=== PATIENT | female | born 1970 | race African-American/Black ===

== ENCOUNTER 2017-03-22 19:13 | Emergency (ER) | payer BC ==
[~2017-03-22] VITALS: Ht 165.1 cm; Wt 89.8 kg
[~2017-03-22 19:13] MED LIST: CIPRO500 MG PO
[2017-03-22] MEDS ORDERED: NORVASC5 MG PO (19:27)
== END 2017-03-22 19:53 | disposition home or self-care (01) ==
LOC: ER 19:13
DX: B08.5 Enteroviral vesicular pharyngitis (principal); I10 Essential (primary) hypertension

== ENCOUNTER 2017-06-23 19:47 | Emergency (ER) | payer BC ==
[~2017-06-23] VITALS: Ht 165.1 cm; Wt 89.8 kg
[~2017-06-23 19:47] MED LIST changes: +NORVASC5 MG PO
[2017-06-23 20:42] LABS: ABSOLUTE NEUTROPHILS 3.8 thou/uL (1.4-8.2); BASOPHILS 0.8 % (0.0-2.0); HEMATOCRIT 37.3 % (37.0-47.0); HEMOGLOBIN 11.8 gm/dL (12.0-15.0); MCH 22.9 pg (26.0-34.0); MCHC 31.7 g/dL (28.0-37.0); MCV 72.3 fL (80.0-100.0); MONOCYTES 5.1 % (1.0-8.0); PLATELET COUNT 330 thou/uL (150-400); POLYS 55.1 % (36.0-66.0); RBC 5.16 mil/uL (4.20-5.00); RDW 15.3 % (10.5-14.5); WBC 6.9 thou/uL (4.0-11.0)
[2017-06-23 20:50] LABS: CALCIUM 9.2 mg/dL (8.5-10.1); CREATININE 0.7 mg/dL (0.6-1.0); POTASSIUM 3.4 mmol/L (3.5-5.1)
[2017-06-23 20:56] LABS: ALBUMIN 3.6 g/dL (3.4-5.0); TOTAL BILIRUBIN 0.2 mg/dL (<0.1-1.0); TOTAL PROTEIN 7.1 g/dL (6.4-8.2); URIC ACID* 5.1 mg/dL (2.6-7.2)
[2017-06-23] MEDS ORDERED: TRAMADOL 50 MG50 MG PO (20:59)
[2017-06-23] MEDS ORDERED: NAPROSYN500 MG PO (20:59)
[2017-06-23 21:20] VITALS: BP 132/55
== END 2017-06-23 21:20 | disposition home or self-care (01) ==
LOC: ER 19:47
PROVIDERS: Emergency Medicine
DX: M79.671 Pain in right foot (principal); I10 Essential (primary) hypertension

== ENCOUNTER 2018-02-21 22:42 | Emergency (ER) | payer OTHER ==
[~2018-02-21] VITALS: Ht 165.1 cm; Wt 92.5 kg
[~2018-02-21 22:42] MED LIST changes: +NAPROSYN500 MG PO; +TRAMADOL 50 MG50 MG PO
[2018-02-22] MEDS ORDERED: IBUPROFEN 400400 M2 PO (00:12)
[2018-02-22 00:27] VITALS: BP 164/75
== END 2018-02-22 00:45 | disposition home or self-care (01) ==
LOC: ER 22:42
DX: M79.641 Pain in right hand (principal); M25.531 Pain in right wrist; I10 Essential (primary) hypertension; Z90.710 Acquired absence of both cervix and uterus; Z88.1 Allergy status to other antibiotic agents; Z88.5 Allergy status to narcotic agent; Z88.8 Allergy status to other drugs, medicaments and biological substances; W13.8XXA Fall from, out of or through other building or structure, initial encounter; Y93.89 Activity, other specified; Y92.009 Unspecified place in unspecified non-institutional (private) residence as the place of occurrence of the external cause; Y99.8 Other external cause status

== ENCOUNTER 2018-03-27 14:49 | Emergency (ER) | payer OTHER ==
[~2018-03-27] VITALS: Ht 165.1 cm; Wt 94.3 kg
[~2018-03-27 14:49] MED LIST changes: +IBUPROFEN 400400 M2 PO
[2018-03-27 15:15] LABS: ABSOLUTE NEUTROPHILS 2.2 thou/uL (1.4-8.2); HEMATOCRIT 36.3 % (37.0-47.0); HEMOGLOBIN 11.7 gm/dL (12.0-15.0); LYMPHOCYTES 43.8 % (24.0-44.0); MCH 23.1 pg (26.0-34.0); MCHC 32.3 g/dL (28.0-37.0); MCV 71.5 fL (80.0-100.0); MONOCYTES 10.7 % (1.0-8.0); PLATELET COUNT 264 thou/uL (150-400); POLYS 42.5 % (36.0-66.0); RBC 5.08 mil/uL (4.20-5.00); RDW 14.5 % (10.5-14.5); WBC 5.2 thou/uL (4.0-11.0)
[2018-03-27 15:25] LABS: ANION GAP 6 mmol/L (7-16); BUN 8 mg/dL (7-18); CALCIUM 9.6 mg/dL (8.5-10.1); CHLORIDE 102 mmol/L (98-107); CO2 27 mmol/L (21-32); CREATININE 0.7 mg/dL (0.6-1.0); GLUCOSE 81 mg/dL (74-106); POTASSIUM 3.9 mmol/L (3.5-5.1); SODIUM 135 mmol/L (136-145)
[2018-03-27] MEDS ORDERED: OMEPRAZOLE40 MG PO (15:30)
[2018-03-27] MEDS ORDERED: DOXYCYCLINE 10100 MG PO (15:31)
[2018-03-27] MEDS ORDERED: CETIRIZINE HCL5 MG PO (15:31)
[2018-03-27 15:33] LABS: ALBUMIN 3.6 g/dL (3.4-5.0); LIPASE 119 U/L (73-393); SGOT 13 U/L (15-37); SGPT 19 U/L (30-65); TOTAL BILIRUBIN 0.2 mg/dL (<0.1-1.0); TOTAL PROTEIN 7.4 g/dL (6.4-8.2); TROPONIN-I <0.06 ng/mL (<0.06)
[2018-03-27] MEDS ORDERED: ADIPEX-P37.5 MG PO (15:37)
[2018-03-27 15:51] LABS: URINE BILIRUBIN NEGATIVE (Negative); URINE BLOOD TRACE (Negative); URINE CLARITY CLEAR; URINE COLOR YELLOW; URINE GLUCOSE-RANDOM* NEGATIVE (Negative); URINE KETONES NEGATIVE (Negative); URINE NITRITE-REFLEX NEGATIVE (Negative); URINE PROTEIN (DIPSTICK) NEGATIVE (Negative); URINE SPECIFIC GRAVITY <= 1.005 (1.005-1.035); URINE UROBILINOGEN 0.2 E.U./dl (0.2-1.0)
[2018-03-27 15:52] LABS: URINE LEUKOCYTES-REFLEX 1+ (Negative)
[2018-03-27] MEDS ORDERED: CARAFATE 1 GM TA1 G1 PO (15:58)
[2018-03-27 16:01] LABS: BACTERIA-REFLEX 1-9 Few /HPF (None Seen); CASTS None Seen /LPF (None Seen); CRYSTALS None Seen /LPF (None Seen); SQUAMOUS 4-10 Moderate /LPF (0-3); URINE RBC 0-2 Rare /HPF (0-2); URINE WBC-REFLEX 6-15 Few /HPF (0-5)
--- NOTE | 2018-03-27 16:26 | EKG ---
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 : 1970 Requested By: Adry Maldonado Order Number: [id number] MD: Earl De Luna Measurements Intervals [place] Rate: 63 P: 1 DC: 197 QRS: -15 QRSD: 100 T: -12 QT: 418 QTc: 428 Interpretive Statements Sinus rhythm Left ventricular hypertrophy Poor R-wave progression Baseline wander in lead(s) V3 No previous ECG available for comparison Electronically Signed On 03-27-2018 16:25:57 [employer] LEAD[employer] by Earl De Luna [email or web address] <ELECTRONICALLY SIGNED> By: Earl De Luna MD 03/27/18 1625 1501 1501 Earl De Luna MD /AMARA
[2018-03-27 17:37] VITALS: BP 151/92
== END 2018-03-27 17:47 | disposition home or self-care (01) ==
LOC: ER 14:49
PROVIDERS: Nurse Practitioner Family
DX: K21.9 Gastro-esophageal reflux disease without esophagitis (principal); I10 Essential (primary) hypertension; Z88.8 Allergy status to other drugs, medicaments and biological substances; Z88.6 Allergy status to analgesic agent; Z90.710 Acquired absence of both cervix and uterus

== ENCOUNTER 2019-01-31 19:14 | Emergency (ER) | payer OTHER ==
[~2019-01-31] VITALS: Ht 165.1 cm; Wt 73.9 kg
[~2019-01-31 19:14] MED LIST changes: +ADIPEX-P37.5 MG PO; +CARAFATE 1 GM TA1 G1 PO; +CETIRIZINE HCL5 MG PO; +DOXYCYCLINE 10100 MG PO; +OMEPRAZOLE40 MG PO
[2019-01-31] MEDS ORDERED: FLEXERIL PO (19:21)
[2019-01-31] MEDS ORDERED: LIDODERM1 EACH TOP (19:21)
[2019-01-31] MEDS ORDERED: PREDNISONE10 MG PO (19:22)
[2019-01-31] MEDS ORDERED: TYLENOL WITH CO1 TA1 PO (19:22)
[2019-02-01 00:15] LABS: ABSOLUTE NEUTROPHILS 2.2 thou/uL (1.4-8.2); BASOPHILS 0.5 % (0.0-2.0); EOSINOPHILS 1.3 % (0.0-3.0); HEMATOCRIT 34.6 % (37.0-47.0); HEMOGLOBIN 10.8 gm/dL (12.0-15.0); LYMPHOCYTES 50.7 % (24.0-44.0); MCH 22.7 pg (26.0-34.0); MCHC 31.3 g/dL (28.0-37.0); MCV 72.5 fL (80.0-100.0); MONOCYTES 4.8 % (1.0-8.0); PLATELET COUNT 253 thou/uL (150-400); POLYS 42.7 % (36.0-66.0); RBC 4.78 mil/uL (4.20-5.00); RDW 16.6 % (10.5-14.5); WBC 5.2 thou/uL (4.0-11.0)
[2019-02-01 00:20] LABS: CALCIUM 9.1 mg/dL (8.5-10.1); CREATININE 0.6 mg/dL (0.6-1.0); POTASSIUM 3.2 mmol/L (3.5-5.1)
[2019-02-01 01:29] LABS: ANISOCYTOSIS 1+; HYPOCHROMASIA 2+; MICROCYTES 1+; OVALOCYTES 1+
[2019-02-01 02:00] VITALS: BP 133/81
== END 2019-02-01 02:00 | disposition home or self-care (01) ==
LOC: ER 19:14
PROVIDERS: Emergency Medicine
DX: M54.5 Low back pain (principal); R07.89 Other chest pain; I10 Essential (primary) hypertension; Z90.710 Acquired absence of both cervix and uterus; Z88.6 Allergy status to analgesic agent; V89.2XXA Person injured in unspecified motor-vehicle accident, traffic, initial encounter; Y93.89 Activity, other specified; Y92.89 Other specified places as the place of occurrence of the external cause; Y99.8 Other external cause status

== ENCOUNTER 2019-03-09 08:20 | Inpatient (IN) | payer OTHER ==
[~2019-03-09] VITALS: Ht 165.1 cm; Wt 68.5 kg
[~2019-03-09 08:20] MED LIST changes: +FLEXERIL PO; +LIDODERM1 EACH TOP; +PREDNISONE10 MG PO; +TYLENOL WITH CO1 TA1 PO
[2019-03-09 08:36] VITALS: BP 127/86
[2019-03-09 10:47] VITALS: BP 127/86
[2019-03-09 10:57] VITALS: BP 156/97
[2019-03-09 11:15] VITALS: BP 146/88
[2019-03-09] MEDS ORDERED: METOCLOPRAMIDE 55 M1 PO (12:22)
[2019-03-09] MEDS ORDERED: TIZANIDINE4 MG/1 TA1 PO (12:24)
[2019-03-09] MEDS ORDERED: NORTRIPTYLINE H25 M3 PO (12:25)
[2019-03-09] MEDS ORDERED: INDERAL40 MG PO (12:26)
--- NOTE | 2019-03-09 12:44 | NUR ---
PT ADMITTED AT 1200 TO THE UNIT. ADMISSION COMPLEETED. A&Ox4. AWAITING ORDERES TO BE ENTERED FOR PT. PT IS IN PAIN FROM THE DIGITAL REMOVEMENT IN THE ER. PT IS LAYING ON HER SIDE TO RELIEVE PAIN. PT CANNOT RECEIVE ORDERED FLUIDS AT THE MOMENT DUE TO NOT HAVING AN IV ACCESS. IV TEAM HAS BEEN PAGED. PT ABLE TO KEEP DOWN WARM FLUIDS. PT NAUSEATED WITH NO VOMITTING. PT USING THE BEDSIDE COMMODE WITH TWO SMALL BALLS. BOWEL MOVEMENT WAS VERY PAINFULL.
[2019-03-09 15:00] VITALS: BP 113/63
[2019-03-09 19:33] VITALS: BP 141/90
--- NOTE | 2019-03-09 20:45 | NUR ---
Pt. has been c/o severe rectal pain. She is extremely anxious and tearful. Tap water enema number 1 was given with little relief. She requested to have a shower and warm shower was given. Po tylenol given for pain and also scheduled senna (see emar). Pt. informed to call when she was ready for enema number 2.
--- NOTE | 2019-03-09 23:00 | NUR ---
Went to check on pt. to give her enema number 2, but she was resting quietly in the bed.
[2019-03-10 06:03] LABS: HEMATOCRIT 37.3 % (37.0-47.0); HEMOGLOBIN 11.5 gm/dL (12.0-15.0); MCH 22.5 pg (26.0-34.0); MCHC 30.8 g/dL (28.0-37.0); RBC 5.11 mil/uL (4.20-5.00); RDW 15.8 % (10.5-14.5); WBC 5.8 thou/uL (4.0-11.0)
[2019-03-10 06:07] LABS: CALCIUM 9.5 mg/dL (8.5-10.1); CREATININE 0.7 mg/dL (0.6-1.0); POTASSIUM 3.5 mmol/L (3.5-5.1)
[2019-03-10 08:41] VITALS: BP 122/72
--- NOTE | 2019-03-10 12:44 | NUR ---
PT A&OX4, VSS, PAIN/PRESSURE IN RECTUM PER PATIENT. PAIN MEDICATION GIVEN. PATIENT TOLERATING CLEAR LIQUIDS. GI CONSULT CALLED IN. NO BOWEL MOVEMENT. WILL CONTINUE TO MONITOR.
[2019-03-10 14:46] VITALS: BP 121/94
[2019-03-10 20:18] VITALS: BP 140/96
--- NOTE | 2019-03-11 01:36 | NUR ---
ASSUMED CARE OF PT AT 1900HRS. PT IS AOX4 AND LETS NEED BE KNOWN. PT COMPLAINED OF RECTAL PAIN AND WAS GIVEN PRN PAIN MEDS. PT HAD SEVERAL LOOSE BM AND ONE SMALL FORMED BM THIS SHIFT. PT IS STILL NOT COMFORTABLE AND FEELS THE NEED TO HAVE A BM. PT SLEPT PART OF THE SHIFT. VSS AND NO S/S OF ACUTE DISTRESS. WILL CONTINUE TO MONITOR.
[2019-03-11 08:32] VITALS: BP 137/88
[2019-03-11 13:55] VITALS: BP 118/83
[2019-03-11 19:45] VITALS: BP 149/104
--- NOTE | 2019-03-11 19:47 | NUR ---
PT A&OX4, VSS, PAIN IN RECTUM AND ABDOMEN. PAIN MEDICATION GIVEN. PATIENT WALKING TO BATHROOM INSTEAD OF BEDSIDE COMMODE. ABDOMEN SOFT AND NO PAIN WITH TOUCH. WILL CONTINUE TO MONITOR.
--- NOTE | 2019-03-12 04:24 | NUR ---
ASSUMED CARE AROUND 191. AXOX4. CALLS APPROPIRATELY FOR ASSISTANCE. SMEAR OF BLOOD NOTED FROM RECTUM. NO ACTIVE BLEEDING NOTED AT THIS TIME FROM BOWEL MOVEMENT. PAIN MANGED PER MD ORDER. VSS. NO S/S ACUTE DISTRESS NOTED OR REPORTED AT THIS TIME.
[2019-03-12 07:30] VITALS: BP 151/87
--- NOTE | 2019-03-12 15:33 | NUR ---
CONSULTED TO REPLACE A PERIPHERAL IV. THIS PATIENT WAS C/O PRIOR IV INFILTRATING, HAS HAD A PICC/MIDLINE IN THE PAST DUE TO POOR IV ACCESS. DICUSSED MIDLINE AND THE PATIENT AGREED TO PROCEDURE WELL UNDERSTANDING RISK/BENIFITS. THE RIGHT UPPER ARM BRACHIAL WAS WIDLEY PATENT. A #4F POWER MIDLINE WAS PLACED PER HOSPITAL POLICY. LINE WAS TRIMMED TO 15CM AND ADVANCED WITHOUT DIFFICULTY. LINE SECURED AND RELEASED FOR USE
[2019-03-12 15:55] VITALS: BP 157/103
[2019-03-12 17:59] LABS: HEMATOCRIT 36.8 % (37.0-47.0); HEMOGLOBIN 11.4 gm/dL (12.0-15.0); MCH 22.5 pg (26.0-34.0); MCV 72.6 fL (80.0-100.0); RBC 5.07 mil/uL (4.20-5.00); RDW 15.2 % (10.5-14.5); WBC 3.7 thou/uL (4.0-11.0)
[2019-03-12 18:17] LABS: ALBUMIN 3.3 g/dL (3.4-5.0); CALCIUM 8.9 mg/dL (8.5-10.1); CREATININE 0.7 mg/dL (0.6-1.0); MAGNESIUM 1.8 mg/dL (1.8-2.4); POTASSIUM 3.8 mmol/L (3.5-5.1); TOTAL BILIRUBIN 0.3 mg/dL (<0.1-1.0); TOTAL PROTEIN 6.6 g/dL (6.4-8.2)
[2019-03-12 19:22] VITALS: BP 134/81
--- NOTE | 2019-03-12 19:38 | NUR ---
Assumed pt care this am, bp has been elevated informed MD, medications given. Pt has complained of pain in her rectum through out the day and says lidocaine ointment has no relief. Fluids encouraged , thickened liquid is better tolerated, encouraged ambulation to promotea a bm. Seen by surgery , mentioned this may be a anal fistula and pt did not want surgery. POC followed, endorsed to the night nurse.
[2019-03-13 00:49] VITALS: BP 148/90
[2019-03-13 05:24] VITALS: BP 138/87
[2019-03-13 05:54] LABS: HEMATOCRIT 35.6 % (37.0-47.0); HEMOGLOBIN 11.1 gm/dL (12.0-15.0); MCH 22.8 pg (26.0-34.0); MCHC 31.2 g/dL (28.0-37.0); MCV 73.1 fL (80.0-100.0); RBC 4.88 mil/uL (4.20-5.00); RDW 15.1 % (10.5-14.5)
[2019-03-13 06:03] LABS: ALBUMIN 3.1 g/dL (3.4-5.0); CALCIUM 8.9 mg/dL (8.5-10.1); CREATININE 0.6 mg/dL (0.6-1.0); PHOSPHORUS 4.7 mg/dL (2.5-4.9); POTASSIUM 3.6 mmol/L (3.5-5.1)
--- NOTE | 2019-03-13 06:34 | NUR ---
PT AOX4. REPORTS PAIN IN RECTUM, EXACERABATED BY TACTILE STIMULATION AND BEARING DOWN. PT RECEIVING SCHEDULED IV TORADOL AND APAP. PT AMBULATING INDEPENDENTLY. TOLERATING PO INTAKE WITHOUT ISSUE. ENCOURAGED TO NOTIFY STAFF FOR ALL NEEDS. CALL LIGHT WITHIN REACH, BED IN LOWEST POSITION, BED ALARM ON. WILL CONTINUE TO MONITOR.
[2019-03-13 08:28] VITALS: BP 144/91
--- NOTE | 2019-03-13 12:39 | NUR ---
per voice message from [employer] Security Master sheila to assist with dcp, can call dir # [phone] m-f 8a-430pm eastern time.
--- NOTE | 2019-03-13 13:56 | NUR ---
IT IS ANTICIPATED THAT PT WILL DISCHARGE HOME ONCE MEDICALLY STABLE WITH NO NEEDS. CM ABLE TO ASSIST SHOULD ANY DC NEEDS ARISE.
[2019-03-13 15:45] VITALS: BP 136/84
--- NOTE | 2019-03-13 18:33 | NUR ---
ASSUMED CARE OF PT AT 0700. PAIN IMPROVING. BOWEL MOVEMENT THIS AM. UP AD LATISHA. KUB UNREMARKABLE. ANTICIPATE D/C TOMORROW.
[2019-03-13 19:20] VITALS: BP 141/83
[2019-03-14 07:35] VITALS: BP 150/88
--- NOTE | 2019-03-14 08:33 | NUR ---
progress pt up ad keren, reports anal pain but refusing tylenol at times bs positive reports flatus no bm this shift pt states she feels as if her rectum has closed. ivf's infusing as ordered pt voiding qs. continue to monitor.
[2019-03-14] MEDS ORDERED: MIRALAX17 GM PO (10:42)
[2019-03-14] MEDS ORDERED: LIDOCAINE35.44 GM TOP (10:43)
[2019-03-14] MEDS ORDERED: SENNA-TIME S T1 EACH PO (10:43)
[2019-03-14] MEDS ORDERED: NORVASC5 MG PO (10:44)
[2019-03-14 11:12] VITALS: BP 150/88
--- NOTE | 2019-03-14 12:58 | NUR ---
PT ALERT AND ORIENTED TIMES FOUR. VSS, IVF INFUSING PER ORDER. PT DENIES PAIN/SOA. PT UP AB LATISHA WITH STEADY GAIT. PT TOLERATES MEDS AND MEALS. PLANS TO DISCHARGE TODAY.
== END 2019-03-14 13:04 | disposition home or self-care (01) | DRG 394 ==
LOC: ER 08:20 → EROBS 10:52 → 4W 10:53
PROVIDERS: Internal Medicine; Surgery; ADMIT Hospitalist
DX: K60.2 Anal fissure, unspecified (principal); E44.0 Moderate protein-calorie malnutrition; K56.41 Fecal impaction; I10 Essential (primary) hypertension; R73.03 Prediabetes; E66.9 Obesity, unspecified; K64.9 Unspecified hemorrhoids; T40.605A Adverse effect of unspecified narcotics, initial encounter; Z88.8 Allergy status to other drugs, medicaments and biological substances; Z90.710 Acquired absence of both cervix and uterus; Z98.84 Bariatric surgery status; Z68.25 Body mass index [BMI] 25.0-25.9, adult; Z88.5 Allergy status to narcotic agent; Y92.89 Other specified places as the place of occurrence of the external cause; Z79.899 Other long term (current) drug therapy
CPT/HCPCS: 10040; 27000

== ENCOUNTER 2019-07-20 09:38 | Emergency (ER) | payer OTHER ==
[~2019-07-20] VITALS: Ht 165.1 cm; Wt 65.8 kg
[~2019-07-20 09:38] MED LIST changes: +INDERAL40 MG PO; +LIDOCAINE35.44 GM TOP; +METOCLOPRAMIDE 55 M1 PO; +MIRALAX17 GM PO; +NORTRIPTYLINE H25 M3 PO; +SENNA-TIME S T1 EACH PO; +TIZANIDINE4 MG/1 TA1 PO
[2019-07-20 09:59] LABS: URINE BILIRUBIN NEGATIVE (Negative); URINE BLOOD TRACE (Negative); URINE CLARITY CLEAR; URINE COLOR YELLOW; URINE GLUCOSE-RANDOM* NEGATIVE (Negative); URINE KETONES NEGATIVE (Negative); URINE LEUKOCYTES-REFLEX 2+ (Negative); URINE NITRITE-REFLEX NEGATIVE (Negative); URINE PROTEIN (DIPSTICK) NEGATIVE (Negative)
[2019-07-20 10:12] LABS: AMP/METHAMP Negative (Negative); BARBITURATES Negative (Negative); BENZODIAZEPINES Negative (Negative); COCAINE Negative (Negative); METHADONE Negative (Negative); OPIATES Negative (Negative); PCP Negative (Negative)
[2019-07-20 10:18] LABS: SQUAMOUS >10 Many /LPF (0-3)
[2019-07-20 10:19] LABS: CASTS None Seen /LPF (None Seen); CRYSTALS None Seen /LPF (None Seen); URINE RBC 0-2 Rare /HPF (0-2); URINE WBC-REFLEX 6-15 Few /HPF (0-5)
[2019-07-20] MEDS ORDERED: TIZANIDINE HCL2 M1 PO (11:37)
[2019-07-20] MEDS ORDERED: MEDROLDOSEPACK PO (11:37)
[2019-07-20] MEDS ORDERED: ULTRAM 50MG TAB50 MG PO (11:37)
[2019-07-20] MEDS ORDERED: IBUPROFEN 600600 M1 PO (11:37)
[2019-07-20 11:50] VITALS: BP 121/57
== END 2019-07-20 11:50 | disposition home or self-care (01) ==
LOC: ER 09:38
PROVIDERS: Emergency Medicine
DX: M54.41 Lumbago with sciatica, right side (principal); I10 Essential (primary) hypertension; E11.9 Type 2 diabetes mellitus without complications; Z88.5 Allergy status to narcotic agent; Z88.6 Allergy status to analgesic agent; Z88.8 Allergy status to other drugs, medicaments and biological substances; Z79.899 Other long term (current) drug therapy; Z90.710 Acquired absence of both cervix and uterus; Z98.890 Other specified postprocedural states

== ENCOUNTER 2020-06-09 08:26 | Emergency (ER) | payer OTHER ==
[~2020-06-09] VITALS: Ht 165.1 cm; Wt 63.0 kg
[~2020-06-09 08:26] MED LIST changes: +IBUPROFEN 600600 M1 PO; +MEDROLDOSEPACK PO; +TIZANIDINE HCL2 M1 PO; +ULTRAM 50MG TAB50 MG PO
[2020-06-09 09:02] LABS: HEMATOCRIT 38.3 % (37.0-47.0); HEMOGLOBIN 12.3 gm/dL (12.0-15.0); MCH 23.3 pg (26.0-34.0); MCV 72.8 fL (80.0-100.0); PLATELET COUNT 239 thou/uL (150-400); RBC 5.27 mil/uL (4.20-5.00); RDW 15.7 % (10.5-14.5); WBC 2.9 thou/uL (4.0-11.0)
[2020-06-09 09:10] LABS: ANION GAP 8 mmol/L (7-16); BUN 8 mg/dL (7-18); CALCIUM 8.9 mg/dL (8.5-10.1); CHLORIDE 103 mmol/L (98-107); CO2 30 mmol/L (21-32); CREATININE 0.7 mg/dL (0.6-1.0); GLUCOSE 102 mg/dL (74-106); POTASSIUM 4.2 mmol/L (3.5-5.1); SODIUM 141 mmol/L (136-145)
[2020-06-09 09:20] LABS: ALBUMIN 3.6 g/dL (3.4-5.0); LIPASE 125 U/L (73-393); SGOT 25 U/L (15-37); SGPT 30 U/L (30-65); TOTAL BILIRUBIN 0.2 mg/dL (0.2-1.0); TOTAL PROTEIN 7.4 g/dL (6.4-8.2); TROPONIN-I <0.06 ng/mL (<0.06)
[2020-06-09 09:53] LABS: ABSOLUTE NEUTROPHILS 1.2 thou/uL (1.4-8.2); ATYPICAL LYMPHS 1 %; PLATELET ESTIMATE NORMAL
[2020-06-09 10:38] LABS: URINE BILIRUBIN NEGATIVE (Negative); URINE BLOOD NEGATIVE (Negative); URINE CLARITY CLEAR; URINE COLOR YELLOW; URINE GLUCOSE-RANDOM* NEGATIVE (Negative); URINE KETONES NEGATIVE (Negative); URINE LEUKOCYTES-REFLEX NEGATIVE (Negative); URINE NITRITE-REFLEX NEGATIVE (Negative); URINE PROTEIN (DIPSTICK) NEGATIVE (Negative); URINE SPECIFIC GRAVITY >= 1.030 (1.005-1.035)
[2020-06-09] MEDS ORDERED: ZANAFLEX4 MG PO (12:02)
[2020-06-09] MEDS ORDERED: NAPROSYN500 MG PO (12:02)
--- NOTE | 2020-06-09 12:24 | EKG ---
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 : 1970 Requested By: Yessenia Felix Order Number: [id number] MD: Gordo Álvarez Measurements Intervals [place] Rate: 70 P: -48 CA: 141 QRS: -21 QRSD: 89 T: 12 QT: 399 QTc: 431 Interpretive Statements Sinus or ectopic atrial rhythm Anteroseptal infarct, age indeterminate Compared to ECG 03/27/2018 15:01:39 No significant change was found Electronically Signed On 06-09-2020 12:24:44 CDT by Gordo Álvarez [email or web address] <ELECTRONICALLY SIGNED> By: Gordo Álvarez MD, [facility] 06/09/20 1224 0857 08 Gordo Álvarez MD, FACC /EPI
[2020-06-09 13:08] VITALS: BP 127/79
== END 2020-06-09 13:08 | disposition home or self-care (01) ==
LOC: ER 08:26
PROVIDERS: Emergency Medicine
DX: R09.1 Pleurisy (principal); R07.89 Other chest pain; R06.00 Dyspnea, unspecified; I10 Essential (primary) hypertension; E11.9 Type 2 diabetes mellitus without complications; Z88.5 Allergy status to narcotic agent; Z88.6 Allergy status to analgesic agent; Z79.899 Other long term (current) drug therapy; Z90.710 Acquired absence of both cervix and uterus